=== PATIENT | female | born 1930 ===

== ENCOUNTER 2017-08-20 15:32 | Outpatient (CLI) ==
[2017-08-20 16:00] LABS: PROTHROMBIN TIME 33.4 SEC (9.3-11.0)
== END 2017-08-20 15:33 | disposition home or self-care (01) ==
LOC: LAB 15:32
DX: Z51.81 Encounter for therapeutic drug level monitoring (principal); Z79.01 Long term (current) use of anticoagulants; I48.2 Chronic atrial fibrillation
CPT/HCPCS: 36415; 85610